=== PATIENT | male | born 1970 | race Caucasian/White ===

== ENCOUNTER 2020-02-27 17:42 | Emergency (ER) | payer MEDICAID ==
[~2020-02-27] VITALS: Ht 175.3 cm; Wt 75.7 kg
[2020-02-27 17:54] VITALS: BP 108/69; Ht 175.3 cm; Wt 75.7 kg
== END 2020-02-27 19:51 | disposition home or self-care (01) ==
LOC: ED 17:42
DX: L02.412 Cutaneous abscess of left axilla (principal); E11.9 Type 2 diabetes mellitus without complications